=== PATIENT | male | born 1945 | race Caucasian/White ===

== ENCOUNTER → 2019-03-19 09:05 | Outpatient (CLI) | payer OTHER, SELFPAY ==
[2019-03-19 09:40] LABS: Creatinine, Serum 1.27 mg/dL (0.70-1.30); EST Glomerular Filtration Rate 59 mL/min (>60); Est Glom Filt Rate - Afr Amer 71 mL/min (>60)
== END ==
PROVIDERS: Referring Provider Surgery Vascular Surgery; Visit Provider Surgery Vascular Surgery
DX: I77.1 Stricture of artery (principal); I74.09 Other arterial embolism and thrombosis of abdominal aorta; I70.245 Atherosclerosis of native arteries of left leg with ulceration of other part of foot; M79.672 Pain in left foot; I96 Gangrene, not elsewhere classified
CPT/HCPCS: 36415; 82565

== ENCOUNTER → 2019-03-19 11:06 | Outpatient (CLI) | payer OTHER, SELFPAY ==
--- NOTE | 2019-03-19 11:24 | CT_ITS ---
STUDY: CTA OF THE ABDOMINAL AORTA AND BILATERAL LOWER EXTREMITIES REASON FOR EXAM: Male, 73 years old. Left foot ulcer x 6 weeks. RADIATION DOSAGE (If Supplied By Facility): CTDIvol = ( 10.56 ) mGy, DLP = ( 1653.17 ) mGycm TECHNIQUE: Axial CT angiography multi-detector data acquisition was obtained from the lung bases to the toes following intravenous administration of IV Isovue 370 100. Axial images and MIP images were reconstructed from the axial data set. Post-processing of the angiographic images was performed, with multiplanar reformation and 3D reconstruction. Individualized dose optimization techniques were used for this CT. TECHNICAL QUALITY: Good COMPARISON: None. Descriptors of Narrowing: None (0%) Mild (< 50%) Moderate (50-70%) Severe (70-90%) Subtotal/Total Occlusion (90-100%) Non-Evaluable (technically non-diagnostic FINDINGS: Abdominal aorta: There is diffuse atherosclerotic plaquing of the abdominal aorta with moderate calcification. No demonstrated stenosis, aneurysm, or dissection. Celiac artery: Ostial atherosclerotic calcific plaquing with no demonstrated narrowing. Normal branching anatomy. Superior mesenteric artery: No demonstrated narrowing. Inferior mesenteric artery: Mild atrophy described calcific plaquing with no hemodynamically significant narrowing. Right renal artery(arteries): Mild atelectatic calcific plaquing of the small caliber 2-3 mm vessel. Left renal artery(arteries): There is greater than 70% calcific atherosclerotic ostial stenosis Right common iliac artery: There is moderate atherosclerotic calcific plaquing without stenosis. There is 1.65 x 1.55 cm ectasia of the vessel. Right external iliac artery: Mild/moderate calcific atherosclerotic plaquing with no demonstrated narrowing. Right internal iliac artery: Moderate atherosclerotic calcific plaquing with no demonstrated narrowing of the main trunk. Moderately significant atherosclerotic narrowing seen in the proximal segmental branches. Left common iliac artery: Moderate atherosclerotic calcific plaquing with no demonstrated narrowing. There is 1.45 cm fusiform ectasia of the common iliac artery. Left external iliac artery: Mild/moderate calcific atherosclerotic plaquing with no demonstrated narrowing. Left internal iliac artery: Moderate atherosclerotic calcific plaquing with no demonstrated narrowing of the main trunk. Moderately significant atherosclerotic narrowing seen in the proximal segmental branches. RIGHT LOWER EXTREMITY Right common femoral artery: Moderate atherosclerotic calcific plaquing with no demonstrated narrowing. Right profundus femoris: Mild atherosclerotic narrowing in the main vessel trunk. Right superficial femoral: Moderate atherosclerotic calcific plaquing with 50-69% narrowing suggested at the adductor canal on series 2 image 178. Right popliteal artery: Moderate atherosclerotic calcific plaquing, more prominent above the knee joint, with no demonstrated narrowing. Right anterior tibial artery: Moderate to moderately severe atherosclerotic occlusive change in the first few centimeters of the vessel, followed by long segment occlusion. Small caliber dorsalis pedis is reconstituted at the ankle. Right tibioperoneal trunk: Moderate atherosclerotic calcific plaquing with no demonstrated narrowing. Right posterior tibial artery: Mild to moderate atherosclerotic calcific plaquing with no demonstrated narrowing. Limited filling of the plantar pedal arch may be a artifact of contrast bolus timing. Right peroneal artery: Mild to moderate atherosclerotic calcific plaquing with no demonstrated narrowing. LEFT LOWER EXTREMITY Left common femoral artery: Moderate atherosclerotic calcific plaquing with no demonstrated narrowing. Left profundus femoris: Mild atherosclerotic narrowing in the main vessel trunk. Left superficial femoral: Occluded. Diffuse atherosclerotic calcific plaquing. Left popliteal artery: Occluded. Diffuse atherosclerotic calcific plaquing. Left anterior tibial artery: Reconstituted near its origin. The diseased first few centimeters are patent, but the remaining vessel is occluded. There is reconstitution of the dorsalis pedis at the ankle. Left tibioperoneal trunk: Reconstituted, but with moderate to moderately severe calcific catheters disease. Left posterior tibial artery: Moderate atherosclerotic calcific plaquing without occlusion. Severe focal stenosis suggested at the mid lower leg on series 2 image 296 and again on image 330. There is limited filling of the plantar pedal arch, but it is unclear if this may simply be due to timing of the contrast bolus. Left peroneal artery: Moderate atherosclerotic calcific plaquing without occlusion. No dynamically significant stenosis difficult to exclude due to the small caliber of the vessel. There is mild elevation of left diaphragm. Minor bibasilar pulmonary volume loss. The heart is borderline enlarged. There are calcifications in the aortic valve leaflets and inferior mitral valve annulus. Mild atrophy described calcifications of the coronary arteries and distal descending thoracic aorta. Normal liver. The patent portal vein diameter is 13 mm. There are multiple rim calcified gallstones, averaging 1.8 cm diameter each. No mural thickening of the gallbladder nor pericholecystic fluid to suggest acute cholecystitis. The common bile duct diameter is 8 mm. Normal spleen. Normal pancreas. Normal bilateral adrenal glands. Well-defined 6.35 x 5.95 x 7.05 cm cortical cyst occupies the posterior upper pole of the right kidney. A second 1.3 cm cortical cyst is seen at the anterior midpole. 3 mm hyperdensity at the posterior mid pole of the right kidney (series 2 image 67, series 601 image 80) may be a nonobstructing stone. Elongated partially exophytic 2.6 x 1.35 x 1.6 cm cortical cyst seen at the posterior upper pole of the left kidney. A 2.6 x 2.1 x 2.1 cm cortical cyst is noted at the posterior hilar lip of the mid pole. No hydronephrosis. Normal visualized stomach. Normal small intestine. There are multiple colonic diverticula consistent with diverticulosis. There is non-visualization of the appendix. Normal inferior vena cava. Normal retroperitoneum. Nearly empty urinary bladder. The prostate gland is 4.6 x 5.1 x 4.2 cm (R 51.5 cc), and mildly elevates the floor of the bladder. Normal abdominal wall. There are diffuse degenerative changes of the visualized spine, including 11-12 mm rightward subluxation of L4 on L5 and slight leftward subluxation of L3 on L4. There is minor anterior wedging of the L1 vertebra, mild right lateral wedging of L2, and mild left lateral wedging of L4. There is a 45 degree levoscoliosis centered at L1-2 and 35 degree dextroscoliosis centered at L4. CT/CTA Abd w/Runoff W/WO Contrast IMPRESSION: 1. Moderately diffuse aortoiliac atherosclerotic calcific plaquing without a demonstrated inflow stenosis. 2. Long segment left superficial femoral and popliteal artery occlusions. There is also long segment occlusion of the left anterior tibial artery. The tibioperoneal trunk is moderate to moderately severe atherosclerotic occlusive disease, and there are at least 2 focal moderately severe stenoses of the left posterior tibial artery. The left peroneal artery shows some plaquing, but is grossly patent. 3. Diffuse right femoral-popliteal atherosclerotic calcific plaquing with 50-69% short segment stenosis suggested at the level of the adductor canal. There is two-vessel runoff via the right posterior tibial and peroneal arteries. 4. Borderline cardiac enlargement. Calcification is noted in the coronary arteries as well as in the aortic valve leaflets. 5. Gallstones. No CT sign of acute cholecystitis or bile duct obstruction. 6. Bilateral renal cortical cysts, as described. Possible 3 mm nonobstructing stone also at the posterior midpole of the right kidney. No hydronephrosis. 7. Enlarged prostate gland, mildly elevating the floor of the urinary bladder. 8. Colonic diverticulosis without acute diverticulitis. No sign of bowel obstruction. The appendix is not visualized. 9. Diffuse degenerative changes of the spine as well as mid to lower lumbar scoliosis, as described. There are mild lumbar vertebral wedging deformities, likely chronic. Electronically Signed: Feliberto Hitchcock MD at 14:14 EDT , Service support ,
== END ==
PROVIDERS: Referring Provider Surgery Vascular Surgery; Visit Provider Surgery Vascular Surgery
DX: I74.09 Other arterial embolism and thrombosis of abdominal aorta (principal); I77.1 Stricture of artery; I70.245 Atherosclerosis of native arteries of left leg with ulceration of other part of foot; M79.672 Pain in left foot; I96 Gangrene, not elsewhere classified
CPT/HCPCS: 75635; Q9967

== ENCOUNTER → 2019-03-25 14:29 | Outpatient (CLI) | payer SELFPAY, OTHER ==
[2019-03-25 12:59] VITALS: BMI 32.4
--- NOTE | 2019-03-25 14:31 | ECHOD_ITS ---
Reason For Study: Pre-op clearance Procedure This was a 2D Doppler, Color Flow transthoracic echocardiogram. Exam performed in department. Left Ventricle Normal LV size. Concentric left ventricular hypertrophy. The estimated ejection fraction is 55 %. Unable to assess diastolic dysfunction. mild inferior hypokinesis. Right Ventricle Normal RV size. Normal systolic function. Atria The left atrium is moderately enlarged. The right atrium is mildly enlarged. No doppler evidence for ASD. Mitral Valve There is no mitral valve stenosis. Mild (1+) mitral valve insufficiency. Tricuspid Valve There is no tricuspid stenosis. Trivial tricuspid valve insufficiency. Pulmonary artery systolic pressure is 55 mmHg. Aortic Valve Moderate diffuse aortic valve thickening. Severe aortic stenosis. Trivial aortic valve insufficiency. Pulmonic Valve There is no pulmonic valvular stenosis. No pulmonic valve insufficiency identified. Great Vessels Normal aortic root. Pericardium/Pleural No pericardial effusion. MMode/2D Measurements & Calculations LVIDd: 4.9 cm IVSd: 1.4 cm LVOT diam: 2.3 cm LVIDs: 4.0 cm LVPWd: 1.1 cm LVOT area: 4.1 cm2 RVDd: 3.9 cm FS: 18.9 % Ao root diam: 2.5 cm LAV(MOD-bp): 142.1 ml LA A4 area: 35.0 cm2 LAV(MOD-bp) Indexed: 61.9 ml/m2 LAV(MOD-sp2): 138.0 ml LAV(MOD-sp4): 145.4 ml LA dimension(2D): 5.3 cm RA A4 area: 20.1 cm2 Doppler Measurements & Calculations MV E max jaspal: 147.9 cm/sec MV V2 max: 154.2 cm/sec MV P1/2t max jaspal: 150.9 cm/sec MV max P.6 mmHg MV P1/2t: 81.6 msec MV V2 mean: 85.0 cm/sec MV dec slope: 541.5 cm/sec2 MV mean P.5 mmHg MV V2 VTI: 34.3 cm MVA(P1/2t): 2.7 cm2 MVA(VTI): 2.9 cm2 Ao V2 max: 439.8 cm/sec LV V1 max: 115.3 cm/sec SV(LVOT): 100.3 ml Ao max P.5 mmHg LV V1 max P.3 mmHg Ao V2 mean: 302.1 cm/sec LV V1 mean P.8 mmHg Ao mean P.5 mmHg LV V1 mean: 79.0 cm/sec Ao V2 VTI: 94.0 cm LV V1 VTI: 24.5 cm ELOY(I,D): 1.1 cm2 ELOY(V,D): 1.1 cm2 PA V2 max: 114.5 cm/sec TR max ajspal: 328.2 cm/sec TR max P.1 mmHg Interpretation Summary The estimated ejection fraction is 55 %. mild inferior hypokinesis Unable to assess diastolic dysfunction. The left atrium is moderately enlarged. The right atrium is mildly enlarged. Mild (1+) mitral valve insufficiency. Pulmonary artery systolic pressure is 55 mmHg. Severe aortic stenosis. Ordering Physician: Coleen Washington Referring Physician: Ifrah Plascencia Performed By: Irma Saldivar RDCS
== END ==
PROVIDERS: Referring Provider Specialist; Visit Provider Specialist
DX: Z01.810 Encounter for preprocedural cardiovascular examination (principal); Z98.890 Other specified postprocedural states; I10 Essential (primary) hypertension; E78.5 Hyperlipidemia, unspecified; I73.9 Peripheral vascular disease, unspecified; I65.29 Occlusion and stenosis of unspecified carotid artery
CPT/HCPCS: 93306

== ENCOUNTER → 2019-03-26 06:17 | Outpatient (CLI) | payer SELFPAY, OTHER ==
[2019-03-25 12:59] VITALS: BMI 32.4
--- NOTE | 2019-03-26 10:19 | STRESSREP_ITS ---
Stress Test Report Date: 03/26/2019 Procedure: Pharmacologic stress nuclear imaging study Indications: Preoperative evaluation Consent: Per the patient Procedure: The patient underwent pharmacologic (Regadenoson) evaluation with a peak heart rate of 103 beats per minute (70 %predicted maximal heart rate) and a peak blood pressure of 162/92 mmHg. The baseline ECG demonstrated [atrial fibrillation, frequent PVCs]. EKG during lexiscan infusion revealed no significant change from baseline. EKG post infusion revealed no significant change from baseline [There were no other significant cardiac dysrhythmias pretest, during pharmacologic infusion, or recovery]. [There was no complaint of chest discomfort during pharmacologic infusion or rec overy]. The examination was discontinued secondary to completion of protocol. Impression: 1. Lexiscan stress test test is negative for Lexiscan infusion induced EKG changes of ischemia. 2. Lexiscan stress test test is negative for Lexiscan infusion induced chest pain. 3. Results of the nuclear portion of the test is as below Myocardial perfusion imaging study: Technique: The patient was injected with 15 millicuries of technetium 99m Cardiolite and subsequently rest SPECT Cardiolite nuclear imaging was obtained in the horizontal long, vertical long, and short axis views. The patient underwent pharmacologic (Regadenoson) evaluation. Please see above for details. The patient was injected with 44.6 millicuries of technetium 99m Cardiolite and subsequently stress SPECT Cardiolite nuclear imaging was obtained in the horizontal long, vertical long, and short axis views. A gated Cardiolite study at peak stress was obtained. Interpretation: Rest and stress SPECT Cardiolite nuclear imaging status post realignment, normalization, and attenuation correction demonstrate mildly decreased radioisotope uptake in the apex. There is no significant reversibility suggestive of large areas of ischemia. Gated images reveal apical and inferior hypokinesis. The reported LVEF is 38 %. However this ejection fraction could be erroneous due to gating error due to atrial fibrillation. Impression: 1. There is no evidence of significant ischemia. 2. Estimated ejection fraction is 38%. However this could be erroneous. Correlate with 2D echo. This note was generated with [employer] software. It may contain incorrect words, spelling, and punctuation that were not noted in checking the note before signing.
== END ==
PROVIDERS: Referring Provider Specialist; Visit Provider Specialist
DX: Z01.810 Encounter for preprocedural cardiovascular examination (principal)
CPT/HCPCS: 78452; 93017; A9500; A4216; J2785

== ENCOUNTER → 2022-03-04 | Outpatient (CLI) | payer OTHER, SELFPAY ==
--- NOTE | 2022-03-04 08:50 | ADUL_ITS ---
Reason For Study: Stenosis Left Velocities Ext Iliac Artery, dist = 38 cm./sec. Common Femoral Artery, mid = 39 cm./sec. Supf. Femoral Artery, prox = 0 cm./sec. Supf. Femoral Artery, mid = 0 cm./sec. Supf. Femoral Artery, dist = 0 cm./sec. Profunda Femoral Artery = 156 cm./sec. Popliteal Artery, mid = 0 cm./sec. Post. Tibial Artery, prox = 28 cm./sec. Post Tibial Artery, mid = 24 cm./sec. Post Tibial Artery, dist. = 15 cm./sec. Peroneal Artery, prox = 24 cm./sec. Peroneal Artery, mid = 23 cm./sec. Peroneal Artery,dist. = 20 cm./sec. Ant.Tibial Artery, prox = 18 cm./sec. Ant Tibial Artery, mid = 0 cm./sec. Ant. Tibial Artery, distal = 28 cm./sec. No flow noted Lt SFA, Lt Pop A, and Lt mid LUCIANO. /US Art Duplex Unilat Lower Ext Interpretation Summary Left femoral, popliteal and anterior tibial occluded. Ordering Physician: Ismael Perkins Referring Physician: Ethan Plascencia Performed By: Michelle Valverde, CARMELO, RVT
--- NOTE | 2022-03-04 08:50 | ART_ITS ---
Reason For Study: Stenosis Procedure A bilateral lower extremity continuous wave Doppler with analog waveform analysis and ankle brachial indexes. Left Segmental Pressures Left brachial= 141mmHg. Left posterior tibial artery = 71mmHg. Left dorsalis pedis artery = 78mmHg. Left digit = 56 mmHg. Right Segmental Pressures Right brachial= 147mmHg. Right posterior tibial artery = 113mmHg. Right dorsalis pedis artery = 140mmHg. Right digit = 0.66 mmHg. Indices The right ankle brachial index by the posterior tibial artery is 0.77. The right ankle brachial index by the dorsalis pedis is 0.95. The right digital-brachial index is 0.66. The left ankle brachial index by the posterior tibial artery is 0.48. The left ankle brachial index by the dorsalis pedis is 0.53. The left digital-brachial index is 0.38. VL/Ankle Brachial Index Interpretation Summary Right normal at rest with biphasic flow and ARIADNE 0.95. Left monophasic flow and ARIADNE 0.53. DBI 0.66 and 0.38. Ordering Physician: Ismael Perkins Referring Physician: Ethan Plascencia Performed By: Michelle Valverde RDCS/RVT
== END | disposition home or self-care (01) ==
LOC: CVS 08:46
PROVIDERS: PCP Family Medicine; Referring Provider Surgery Vascular Surgery; Visit Provider Surgery Vascular Surgery
DX: Z48.812 Encounter for surgical aftercare following surgery on the circulatory system (principal); I70.245 Atherosclerosis of native arteries of left leg with ulceration of other part of foot; I74.09 Other arterial embolism and thrombosis of abdominal aorta; I77.1 Stricture of artery
CPT/HCPCS: 93922; 93926